=== PATIENT | female | born 1985 | race Caucasian/White ===

== ENCOUNTER → 2018-02-10 | Outpatient (CLI) | payer OTHER ==
[2018-02-10 13:31] LABS: BASO # 0.1 10^3/uL (0.0-0.2); BASO % 0.6 % (0.0-1.0); EOS # 0.2 10^3/uL (0.0-0.50); HEMATOCRIT 38.8 % (36.0-47.0); HEMOGLOBIN 13.4 g/dl (12.0-15.5); IMMATURE GRANULOCYTE % 1.4 % (0-3.0); LYMPH # 1.6 10^3/uL (1.5-4.5); LYMPH % 10.1 % (24.0-44.0); MEAN CORPUSCULAR HEMOGLOBIN 30.2 pg (27.0-33.0); MEAN CORPUSCULAR HGB CONC 34.5 g/dl (32.0-36.5); MEAN CORPUSCULAR VOLUME 87.4 fl (80.0-96.0); MONO % 6.1 % (0.0-5.0); NEUTROPHILS # 12.9 10^3/uL (1.8-7.7); NEUTROPHILS % 80.8 % (36.0-66.0); PLATELET COUNT, AUTOMATED 279 10^3/uL (150-450); RED BLOOD COUNT 4.44 10^6/uL (4.00-5.40); WHITE BLOOD COUNT 15.9 10^3/uL (4.0-10.0)
[2018-02-10 15:08] LABS: CHLAMYDIA DNA AMPLIFICATION NEGATIVE (NEGATIVE); GC DNA AMPLIFICATION NEGATIVE (NEGATIVE)
[2018-02-11 09:40] LABS: RUBELLA IgG QUALITATIVE IMMUNE (IMMUNE)
[2018-02-11 09:51] LABS: HBsAg Prenatal NEGATIVE (NEGATIVE)
[2018-02-11 10:10] LABS: HIV 1&2 SCREEN CENTAUR NEGATIVE (NEGATIVE)
[2018-02-11 10:10] LABS: HEPATITIS C VIRUS ABY INDEX 0.1 INDEX (<0.8)
== END ==
LOC: M SMT 10:13
DX: Z34.80 Encounter for supervision of other normal pregnancy, unspecified trimester (principal); Z3A.08 8 weeks gestation of pregnancy
CPT/HCPCS: 86762

== ENCOUNTER → 2018-05-23 | Outpatient (REF) | payer OTHER | LOC: M SFHCLERA 11:39 | DX: R30.0 Dysuria (principal) ==

== ENCOUNTER 2018-06-09 16:40 | Outpatient (CLI) | payer OTHER | END 2018-06-09 17:41 | disposition home or self-care (01) | LOC: M LDO 16:40 | DX: O26.892 Other specified pregnancy related conditions, second trimester (principal); N89.8 Other specified noninflammatory disorders of vagina; O99.342 Other mental disorders complicating pregnancy, second trimester; F41.9 Anxiety disorder, unspecified; F32.9 Major depressive disorder, single episode, unspecified; Z79.899 Other long term (current) drug therapy; Z88.8 Allergy status to other drugs, medicaments and biological substances; Z3A.25 25 weeks gestation of pregnancy | CPT/HCPCS: 76815 ==

== ENCOUNTER → 2018-06-27 | Outpatient (CLI) | payer OTHER ==
[2018-06-27 13:18] LABS: HEMATOCRIT 32.5 % (36.0-47.0); HEMOGLOBIN 10.8 g/dl (12.0-15.5); MEAN CORPUSCULAR HEMOGLOBIN 29.7 pg (27.0-33.0); MEAN CORPUSCULAR HGB CONC 33.2 g/dl (32.0-36.5); MEAN CORPUSCULAR VOLUME 89.3 fl (80.0-96.0); PLATELET COUNT, AUTOMATED 222 10^3/uL (150-450); RED BLOOD COUNT 3.64 10^6/uL (4.00-5.40); RED CELL DISTRIBUTION WIDTH 13.3 % (11.5-14.5)
[2018-06-27 13:32] LABS: GLUCOSE CHALLENGE TEST 1 HOUR 110 MG/DL (LESS THAN 140)
[2018-06-28 08:30] LABS: TYPE AND SCREEN 1 1
== END ==
LOC: M SMT 09:30
DX: Z36.89 Encounter for other specified antenatal screening (principal)
CPT/HCPCS: 82950

== ENCOUNTER → 2018-08-19 | Outpatient (REF) | payer OTHER ==
[~2018-08-19] MED LIST: PRENTAB9 PO; SERT50TA PO
== END ==
LOC: M LAB REF 17:10
PROVIDERS: ATTEND Advanced Practice Midwife
DX: O99.353 Diseases of the nervous system complicating pregnancy, third trimester (principal)

== ENCOUNTER 2018-09-16 19:54 | Inpatient (IN) | payer OTHER ==
[~2018-09-16] VITALS: Ht 170.2 cm; Wt 90.2 kg
[2018-09-16 20:07] VITALS: BP 125/87
[2018-09-16 22:58] VITALS: BP 124/82
[2018-09-17] VITALS (26 sets, daily range): BP systolic 88–132; BP diastolic 53–87
[2018-09-17 00:14] LABS: HEMATOCRIT 36.1 % (36.0-47.0); HEMOGLOBIN 12.2 g/dl (12.0-15.5); MEAN CORPUSCULAR HEMOGLOBIN 29.5 pg (27.0-33.0); MEAN CORPUSCULAR HGB CONC 33.8 g/dl (32.0-36.5); MEAN CORPUSCULAR VOLUME 87.2 fl (80.0-96.0); PLATELET COUNT, AUTOMATED 199 10^3/uL (150-450); RED BLOOD COUNT 4.14 10^6/uL (4.00-5.40)
[2018-09-17] MEDS ORDERED: LACTATED RINGER'S 1000 ML IV STA (00:50)
[2018-09-17] MEDS ORDERED: LR 1,000 ML IV SCH (00:50)
[2018-09-17] MEDS ORDERED: OXYTOCIN 30 UNITS IN 0.9% NaCl 500ML IV BAG (J2590) As Ordered ONE (00:53)
[2018-09-17] MEDS ORDERED: OXYTOCIN DRIP 30 UNITS in APPROPRIATE DILUENT 1 EA IV SCH (01:00)
--- NOTE | 2018-09-17 01:05 | HPEPDOC ---
Obstetrical History & Physical General Date of Admission Sep 16, 2018 at 23:31 History of Present Illness Chief Complaint: Contractions, term Information Provided By: Patient Age: 32 : 4 Term: 2 Pre-term: 0 Abortions: 1 Livin Care Care: Good Care Dating Final EDC: Sep 16, 2018 Final EDC by: LMP EGA at Admission: 40 Antepartum Course Height (inches): 67 Pre- weight (lbs.): 154 Admission Weight (lbs.): 202 Past Medical History Past Obstetrical History #1: Past Obstetrical History: Primgravida (03/2009) Type of Delivery: Spontaneous Vaginal Del. Sex of Infant: Male (9#5) Complications: No Past Obstetrical History #2: Past Obstetrical History: Multigravida (08/2012) Type of Delivery: Spontaneous Vaginal Del. Sex of : Female (8#5) Complications: No ASSESSMENT NURSE History: Spontaneous , Abnormal Pap (LEEP 2015) Past Medical History Surgical History: Other (LEE) Family History Significant Family History: Diabetes, Hypertension, Seizures Social History Marital Status: Family situation: Spouse/partner home Psychosocial History: Anxiety * Smoker: non-smoker Alcohol: Denies Drugs: denies Imunizations Tdap status: declined Allergies Coded Allergies: Cephalexin (Unverified Allergy, Mild, ITCHING , 09/16/18) Medications Scheduled Multivitamins/ ( 27-0.8 mg) 1 Tab Tab, 1 TAB PO DAILY Sertraline Hcl (Sertraline HCl) 50 Mg Tab, 50 MG PO DAILY Physical Examination Physical Examination GENERAL: Alert and oriented times three. BREAST: . ABDOMEN: Gravid and non-tender to touch. FETUS: Is vertex (VTX) by sterile vaginal examination (SVE), fetus is vertex (VTX) by Tk. HEART RATE: Regular rate and rhythm. LUNGS: Clear to auscultation (CTA). EXTREMITIES: No edema. No clonus. Deep tendon reflexes (DTRs) + 2. Vital Signs/I&O Vital Signs Date Time Temp Pulse Resp B/P (MAP) Pulse Ox O2 Delivery O2 Flow Rate FiO2 09/16/18 22:58 85 18 124/82 (96) 09/16/18 20:07 98.5 Laboratory Data 24H LABS Laboratory Tests 2 09/16/18 23:34: Serology Scanned Report Hepatitis B Testing 09/17/18 00:00: Nucleated Red Blood Cells % (auto) 0.0 CBC/BMP Laboratory Tests 09/17/18 00:00 Red Blood Count 4.14, Mean Corpuscular Volume 87.2, Mean Corpuscular Hemoglobin 29.5, Mean Corpuscular Hemoglobin Concent 33.8, Red Cell Distribution Width 14.4 Pertinent Laboratoy Data Blood Type: O- RBC Antibody Screen: Negative HIV: Negative Hepatitis B: Negative Hepatitis C: Negative Rapid Plasma Reagin: Nonreactive Rubella: Immune Chlamydia/Gonorrhea: Negative Group B Streptococcus: Negative Quad Screen Test: Declined Glucose Tolerance Test: 110 Anatomy Ultrasound Ultrasound Date: Apr 15, 2018 Placenta Location: Posterior Normal Anatomy: Yes Placenta Previa: No Estimated Weight (grams): 260 (81%) Other Ultrasounds 02/10/18 dating 8w6d 05/11/18 f/u EFW 478gm 71% Steroid Therapy Steroid Therapy: No Vaginal Examination Dilation: 4 cm Effacement: 90% Station: -2 Cervical Consistency: Medium Cervical Position: Middle Presentation: Cephalic presentation Assessment Heart Rate (FHR): 125 Variability: Moderate Accelerations: Positive Decelerations: None Tocometer Contractions: Yes Frequency: irregular, every 2-5 min. Duration: greater than 60 seconds Strength: palpated as moderate Assessment/Plan Assessment Dorothea is a 32-year-old (G)4 para (P)2-0-1-2 at 40+0 weeks by 8-week ultrasound. Presents to Labor and Delivery (L&D) with complaints of contractions since her appointment earlier today. Pt reports membranes were swept and she was 4cm. Denies LOF or bleeding. Fetus active. . Plan Admit and orient. Administrative Officer and consent. Diet: Clear liquids. Group B Streptococcus (GBS) negative. Labs and intravenous (IV) per unit protocol. Counseled on Pitocin and augmentation of prodromal labor pattern. Lactated Ringers (LR): Bolus 500 mL, then at 125 mL/hr. Pt is planning an epidural Anticipate normal spontaneous delivery (). C-S as appropriate. Toyin Machado CNM Sep 17, 2018 01:05
[2018-09-17] MEDS ORDERED: FENTANYL 2MCG/ML ROPIVACAINE 0.2% IN 0.9% NACL 100ML IVBAG As Ordered ONE (01:59)
[2018-09-17] MEDS ORDERED: ePHEDrine SULFATE 25 MG/5 ML(5MG/ML) SYRINGE As Ordered ONE (02:46)
[2018-09-17] MEDS ORDERED: REFRIGERATOR IV KEYS XX PRN (03:00)
[2018-09-17] MEDS ORDERED: ePHEDrine SULFATE 25 MG/5 ML(5MG/ML) SYRINGE IV PRN (03:00)
[2018-09-17] MEDS ORDERED: LACTATED RINGER'S 1000 ML IV PRN (03:00)
[2018-09-17] MEDS ORDERED: FENTANYL/ROPIVACAINE/NACL BAG 100 ML EPIDURAL SCH (03:00)
[2018-09-17] MEDS ORDERED: NALOXONE INJ 0.4 MG/1 ML VIAL (J2310) IV PRN (03:00)
[2018-09-17] MEDS ORDERED: EPIDURAL/PCA KEYS XX PRN (03:00)
[2018-09-17] MEDS ORDERED: diphenhydrAMINE INJ 50MG/ML VIAL (J1200) IV PRN (03:00)
[2018-09-17] MEDS ORDERED: ONDANSETRON 4MG/2ML VIAL (J2405) IV PRN (03:00)
[2018-09-17] MEDS ORDERED: EPIDURAL COMMENT XX SCH (03:00)
[2018-09-17] MEDS ORDERED: DOCUSATE SODIUM 100 MG CAP PO PRN (05:00)
[2018-09-17] MEDS ORDERED: ACETAMINOPHEN 500 MG TAB PO PRN (05:00)
[2018-09-17] MEDS ORDERED: DIBUCAINE 1% OINTMENT 30GM TOP PRN (05:00)
[2018-09-17] MEDS ORDERED: ANUSOL HC CREAM 30GM TOP PRN (05:00)
[2018-09-17] MEDS ORDERED: METHYLERGONOVINE MALEATE 0.2 MG TAB PO PRN (05:00)
[2018-09-17] MEDS ORDERED: IBUPROFEN 800 MG TAB PO PRN (05:00)
[2018-09-17] MEDS ORDERED: RHOGAM 300 MCG (1500 IU) INJ (J2790) IM SCH (05:00)
[2018-09-17] MEDS ORDERED: MOM 30ML SUSPENSION UDC PO PRN (05:00)
[2018-09-17] MEDS ORDERED: MEASLES,MUMPS,RUBELLA VACCINE INJ (MMR-II) (90707) SC SCH (05:00)
--- NOTE | 2018-09-17 05:05 | DNPDOC ---
[facility] Delivery Note Delivery Note DATE OF DELIVERY: 09/17/18 PREDELIVERY DIAGNOSIS: 40+1/7 weeks' gestation and labor. POST DELIVERY DIAGNOSIS: Delivered. PROCEDURE: Spontaneous vaginal delivery. PROVIDER: Toyin Machado CNM ANESTHESIA: Epidural. ESTIMATED BLOOD LOSS: 300 mL. FINDINGS: 8 pound 11 ounce, 3930gm female infant, Score 7/8, occult cord around shoulder and body x 1. DELIVERY SUMMARY: Patient is a 32-year-old 4 now para 3-0-1-3 who was admitted to labor and delivery for contractions. She was augmented with pitocin and utilized an epidural for labor coping. FD 0348. AROM clear fluid 0357. Viable female delivered JESSICA through occult shoulder and body cord @ 0413. Spontaneous respirations with stimulation, transitioned on maternal abdomen. Cord gas obtained, results pending. Cord doubly clamped and cut, to w armer for further evaluation. Apgars 7/8. Placenta melgoza, intact with 3v cord @ 0422. Fundus firmed with massage and IV pitocin bolus. EBL 300ml. 2nd degree perineal laceration repaired with 3-0 vicryl rapide. Sponge sharp instrument count correct. Toyin Machado CNM Sep 17, 2018 05:05
[2018-09-17 05:15] LABS: CORD GAS ABE V -4.2; CORD GAS O2 SAT V 87.9 %; CORD GAS PCO2 V 43.9 mmHg; CORD GAS PH V 7.317 UNITS; CORD GAS SBC V 20.8 MEQ/L; CORD GAS TCO2 V 23.3 MEQ/L
[2018-09-17] MEDS: PRENATAL VITAMINS CHEWABLE TABLET PO SCH (07:42)
[2018-09-17] MEDS ORDERED: SERTRALINE HCL 50 MG TAB PO SCH ×2 (09:00→12:00)
[2018-09-18 06:00] VITALS: BP 116/74
[2018-09-18] MEDS: PRENATAL VITAMINS CHEWABLE TABLET PO SCH (08:51)
[2018-09-18] MEDS ORDERED: MAPA500T2 PO (09:33)
[2018-09-18] MEDS ORDERED: IBUP-1114 PO (09:34)
[2018-09-18] MEDS ORDERED: COLA100C5 PO (09:35)
[2018-09-18] MEDS ORDERED: MOM30SS PO (09:37)
== END 2018-09-18 10:45 | disposition home or self-care (01) | DRG 807 ==
LOC: M LDO 19:54 → M LDI 23:31 → M OBS 09-17 06:32
PROVIDERS: ADMIT Advanced Practice Midwife; ATTEND Advanced Practice Midwife
PROC: 10E0XZZ Delivery of Products of Conception, External Approach (ICD-10-PCS; principal; 2018-09-17)
PROC: 0KQM0ZZ Repair Perineum Muscle, Open Approach (ICD-10-PCS; 2018-09-17)
PROC: 10907ZC Drainage of Amniotic Fluid, Therapeutic from Products of Conception, Via Natural or Artificial Opening (ICD-10-PCS; 2018-09-17)
DX: O70.1 Second degree perineal laceration during delivery (principal); Z37.0 Single live birth; Z3A.40 40 weeks gestation of pregnancy

== ENCOUNTER → 2018-11-30 | Outpatient (REF) | payer OTHER ==
[~2018-11-30] MED LIST changes: +COLA100C5 PO; +IBUP-1114 PO; +MAPA500T2 PO; +MOM30SS PO; +SERT-141 PO; -SERT50TA PO
== END ==
LOC: M LAB REF 12:55
PROVIDERS: ATTEND Advanced Practice Midwife
DX: Z12.4 Encounter for screening for malignant neoplasm of cervix (principal); R87.610 Atypical squamous cells of undetermined significance on cytologic smear of cervix (ASC-US)
CPT/HCPCS: 87624; G0123

== ENCOUNTER → 2020-02-13 | Outpatient (REF) | payer BC | LOC: M SFHCWAGY 10:34 | PROVIDERS: ATTEND Advanced Practice Midwife | DX: Z12.4 Encounter for screening for malignant neoplasm of cervix (principal) | CPT/HCPCS: 87624; G0123 ==